=== PATIENT | female | born 1975 | race Caucasian/White ===

== ENCOUNTER 2023-10-15 22:46 | Inpatient (IN) | payer BC, SELFPAY ==
[2023-10-15 18:53] VITALS: BP 132/84
--- NOTE | 2023-10-15 19:21 | ED.GENMED ---
History of Present Illness
General
Chief Complaint: Hyper/Hypo Thermia Problem
Source: patient
Time Seen by Provider: 10/15/23 19:07
History of Present Illness
History of Present Illness:
48-year-old female states that she was playing pickle ball earlier today and 'overdid it'. Describes feeling overheated with episodes of 'hot and cold'. She started to feel like she might pass out described as nausea' tunnel vision'. She asked
her to come pick her up while she applied cold packs. She got home at around 1:30 PM and continued to try to alleviate her symptoms with drinking of fluids, sugar, banana, etc. She describes recurrent episodes of near syncope and shivering
shaking. She measured her temperature and it was abnormally low. Because she was feeling so unwell, she did not get up when she had a the need to defecate and urinate, and as result was incontinent although she denies numbness tingling or lack of
sensation. She denies abdominal pain, chest pain, headache, dyspnea. Patient has a history of vasovagal events in the past and this feels similar. Patient reports a 'migraine' which is typical for her, not sudden onset, not worst of life
associated with mild nausea. No change in vision, no change in swallowing
Past History
Past History
ED Past Medical History: Other (Vasovagal events)
ED Past Surgical History: Gynecological
Social History
Tobacco: Non-smoker
Alcohol: None
Personal:
Living: with family
Phy Exam
Physical Exam
Physical Exam:
GENERAL: Awake but tired appearing, in no apparent distress
EYE: pupils equal and reactive, EOMI, no photophobia, no nystagmus
NECK: Supple, no significant adenopathy.
ENT: o/p clr, mmm.
CARDIAC: Regular rate and rhythm .
LUNGS: Clear breath sounds bilaterally, no acute respiratory distress, no wheezes/rales/rhonchi
ABDOMEN: Soft, without focal tenderness, no r/g, no cvat
NEUROLOGICAL: Alert and oriented, no focal neuro deficits, cranial nerves II through XII intact, sensory intact to light touch, motor 5 out of 5, [id number] normal
SKIN: Warm and dry, skin intact.
MUSCULOSKELETAL: No edema, well perfused.
PSYCH: Normal and appropriate interaction.
Course
Orders/Labs/Results
Orders:
Orders
10/15/23 19:18
Cardiac Monitoring- Treatment ONCE
0.9% Sodium Chloride 1000 ml [Nss] 1,000 ml IV BOLUS
10/15/23 19:19
Electrocardiogram (*1) Urgent
Reason for Study: Other
Other Reason for Exam: sepsis
EKG- Treatment ONCE
10/15/23 19:57
CT Head W/o Iv Contrast Urgent
Comment:
Reason For Exam: dobbins, dizzy
Diphenhydramine [Benadryl] 25 mg IV NOW STA
Metoclopramide [Reglan] 10 mg IV NOW STA
10/15/23 20:38
Complete Blood Count/With Diff Urgent
Comprehensive Metabolic Panel Urgent
Serum Osmolality Urgent
Comment: ADD ON
TSH Reflex To Free T4 Urgent
Comment: ADD ON
10/15/23 22:27
Osmolality, Random Urine Urgent
Date Specimen was Collected: 10/15/23
Time Specimen was Collected: 22:26
Urinalysis Reflex To Culture Urgent
Date Specimen was Collected: 10/15/23
Time Specimen was Collected: 22:26
Urine Sodium Urgent
Date Specimen was Collected: 10/15/23
Time Specimen was Collected: 22:27
10/15/23 22:49
Add On- LAB Urgent
Tests Added?: serum osmo, tsh with free t4
10/15/23 22:56
Admit/Transfer Patient As Directed
Co-Sign Provider:
Level of Care: Inpatient admission
Assign to:: Telemetry
Physician / Group: ranjana,ravinder
Diagnosis: symptomatic hyponatremia 2/2 water intoxication, hypoK
Reason for Telemetry: Arrhythmia
Date to Stop Telemetry: 10/18/23
Time to Stop Telemetry: 11:00
Reason for Hospitalization: symptomatic hyponatremia 2/2 water intoxication, hypoK
Expected length of stay greater than two midnights?: Yes
ELOS- Estimated Length of Stay in days: 4
I certify the patient meets the requirements for IP care: Yes
Code Status As Directed
Resuscitation Status: Full Code
NEPHROLOGY CONSULT Routine
Consulting Provider: Yancy Johansen
Was physician already notified: Yes
Reason for consult: hyponatremia water intoxication
10/15/23 22:58
PRN Pain Medication Management As Directed
May give lesser potent ordered pain med per pt: Yes
preference::
Protocol:: Medication orders for pain may be administered in a
manner that supports deferring to patient preference
when the pt is:
-Requesting an ordered lesser potent pain medication.
Least to most potent pain medications are defined as:
acetaminophen < NSAID < tramadol < opioids (morphine,
oxycodone, hydromorphone).
- Requesting a lesser dose of the same medication IF
ORDERED.
- Requesting a less intrusive route of administration
if both routes are prescribed by the provider (PO <
IV).
10/15/23 23:11
Potassium Chloride [KCl] 40 meq PO NOW STA
10/18/23 11:00
DC Protocol for Telemetry ONCE
Abnormal Lab Results
10/15/23 10/15/23
20:38 22:27
WBC 12.9 H 10^3/uL
(4.8-10.8)
RBC 3.95 L 10^6/uL
(4.20-5.40)
Hgb 11.7 L g/dL
(12.0-16.0)
Hct 31.7 L %
(37.0-47.0)
MCV 80.3 L fL
(81.0-99.0)
Absolute Neuts (auto) 10.8 H 10^3/uL
(1.4-6.5)
Neutrophils % 83.4 H %
(42.2-75.2)
Lymphocytes % 11.7 L %
(20.5-51.1)
Sodium 123 L mmol/L
(135-145)
Potassium 3.4 L mmol/L
(3.5-5.1)
Chloride 94 L mmol/L
(98-107)
Carbon Dioxide 19 L mmol/L
(22-30)
Creatinine 0.5 L mg/dL
(0.6-1.0)
Glucose 161 H mg/dl
(70-99)
Total Bilirubin 1.5 H mg/dl
(0.2-1.3)
AST 39 H U/L
(14-36)
Urine Osmolality 65 L mOsm/kg
(300-900)
10/15/23 20:38
10/15/23 20:38
Vital Signs
Initial and Last Documented VS:
Initial Vital Signs
Temp Pulse Resp BP Pulse Ox
98.0 F 99 20 132/84 99
10/15/23 18:53 10/15/23 18:53 10/15/23 18:53 10/15/23 18:53 10/15/23 18:53
Last Documented Vital Signs
Temp Pulse Resp BP Pulse Ox
98.5 F 96 20 120/80 97
10/15/23 19:55 10/15/23 22:30 10/15/23 18:53 10/15/23 22:30 10/15/23 22:30
*Critical Care Note
Total Time (30-74mins, 75-104mins- exclusive of procedures): Not Applicable
Update Note
Update Note:
Patient presents to the Emergency Department with ____hypothermia, generalized weakness, dizziness
Number and Complexity of Problems Addressed at the Encounter
� Chronic conditions affecting care:
� Acute Exacerbation and/or Progression of Chronic Illness:
� Differential Diagnosis includes: But not limited to heat exhaustion, dehydration, electrolyte abnormality, etc.
Amount and/or Complexity of Data to be Reviewed and Analyzed
� I performed an independent evaluation of and my interpretation is:
EKG:reada by me, nsr, tachycardic, no acute ischemia
CT:[facility] read, ct head nad
Xrays:
Laboratory Studies: Hyponatremia noted, mild hypokalemia
Other:
� Review of other/old records reveals:
� Clinical information was obtained by an independent historian:fannie who is at bedside
� Prescriptions/Medications Considered but not given:
� Further testing considered but not performed:
Risk of Complications and/or Morbidity or Mortality of Patient Management
� Social determinants of health affecting care:
� Discussion with other providers (PCP, Hospitalists, Consultants, etc):
� Escalation of care including admission/observation vs risk of discharge considered:suspect dilutional hypoNa, she reports 'ALOT' of water intake. Case d/w nephro, Dr [place], she advises to not start 3%, just check Na in 4 hrs,
agrees with urine stuides. Case d/w Dr Franklin for admission.
ED Attending Note
-
Portions of this chart may have been created with voice recognition software.� Occasional wrong word or��sound alike� substitutions may have occurred due to the inherent limitations of voice recognition software.
Discharge Plan
Departure
Patient Disposition: Admit
Date of Disposition: 10/15/23
Time of Disposition: 22:14
Admit to: Telemetry
Presentation/result/management discussed w/ accepting MD/DO: Hospitalist
Condition: Fair
Discharge Problem:
Acute hyponatremia
Referrals:
NONE,* [Active] -
Interventions
Interventions:
*Risk Screen - Suicide Last Done: 10/15/23 20:54
*General Assessment Last Done: 10/15/23 20:54
*Neglect/Abuse Screening Last Done: 10/15/23 20:54
*ED COVID-19 Vaccine History Last Done: 10/15/23 20:54
ED- Neurological Assessment Last Done: 10/15/23 20:54
Discharge Date and Time
Print Language: CITIZEN OF [place]
--- NOTE | 2023-10-15 19:49 | EDRN ---
Patient came from triage full of stool. Patient then started to urinate when she came back to room 34. Patient states that over the past couple of hours her temperature has been fluctuating, and has been low. Rectally patient is 98.5 Patient
cleaned, placed in a gown and diaper. Blankets provided. Patient stated that she was okay with throwing her clothes away since they were all soiled.
[2023-10-15] MEDS: BENADRYL 25 MG IV (20:36)
[2023-10-15] MEDS: NSS 1000 IV (20:36)
[2023-10-15] MEDS: REGLAN 10 MG IV (20:37)
[2023-10-15 20:39] VITALS: BP 142/70
[2023-10-15 20:47] LABS: % Basophils 0.2 % (0-2); % Immature Granulocytes 0.2 % (0-0.5); % Lymphocytes 11.7 % (20.5-51.1); % Monocytes 4.5 % (1.7-9.3); % Neutrophils 83.4 % (42.2-75.2); Absolute Lymphocytes 1.5 10^3/uL (1.2-3.4); Absolute Monocytes 0.6 10^3/uL (0.1-0.6); Absolute Neutrophils 10.8 10^3/uL (1.4-6.5); Hematocrit 31.7 % (37.0-47.0); Hemoglobin 11.7 g/dL (12.0-16.0); Mean Corp Hgb Conc. 36.9 g/dL (33.0-37.0); Mean Corpuscular Hgb 29.6 pg (27.0-31.0); Mean Corpuscular Volume 80.3 fL (81.0-99.0); Mean Platelet Volume 9.1 fL (7.4-10.4); Nucleated Red Blood Cells % 0 %; Platelet Count 336 10^3/uL (130-400); Red Blood Cell Count 3.95 10^6/uL (4.20-5.40); Red Cell Dist. Width 11.7 % (11.5-14.5); White Blood Cell Count 12.9 10^3/uL (4.8-10.8)
[2023-10-15 21:01] LABS: ALT (SGPT) 21 U/L (0-35); AST (SGOT) 39 U/L (14-36); Alkaline Phosphatase 80 U/L (38-126); Blood Urea Nitrogen 8 mg/dl (7-17); Calcium 8.8 mg/dl (8.4-10.2); Carbon Dioxide 19 mmol/L (22-30); Chloride 94 mmol/L (98-107); Glucose 161 mg/dl (70-99); Potassium 3.4 mmol/L (3.5-5.1); Sodium 123 mmol/L (135-145); Total Bilirubin 1.5 mg/dl (0.2-1.3); Total Protein 6.3 g/dl (6.3-8.2); eGFR > 60.00
--- NOTE | 2023-10-15 22:20 | HPS.HSE ---
Addendum entered and electronically signed by Isaac Franklin DO 10/15/23 23:19:
Patient seen and examined independently. Agree with findings and plan as set forth by EVELYN Reina.
Patient is a 48y F with PMH significant for vasovagal syndrome / recurrent syncope who presents to ED complaining of chills, nausea, lightheadedness, etc. Patient states that she played pickleball this AM for about 4 hours. She drank about 1/2
gallon of water during that time. When she returned home, she felt very warm and started to feel lightheaded. She drank additional water at home totalling about 190 ounces over 9 hours.
Patient continued to complain of headache, chills / shaking and nausea.
She denies any actual syncope.
Patient presented to the ED where she was noted to have Na = 123.
Ass:
Hyponatremia
Vasovagal Syndrome
Mild Hypokalemia
Plan:
Admit for further evaluation and treatment.
Very likely hyponatremia secondary to excessive water intake.
Fluid restriction overnight.
Follow Na levels for improvement.
Nephrology consulted.
Follow for any fever, new / focal symptoms, etc.
Original Note:
Family Physician
-
Family Physician: Marylou Morales
Chief Complaint
-
Dizziness, trembling, nausea, headache
History of Present Illness
48-year-old female reports was playing pickle ball earlier today with episodes of feeling hot and cold with nausea and tunnel vision. She reports starting pickleball at 8 AM for which she played 4 hours. Over the 4 hours she drank a half a gallon
of water then additional 1/4 gallon. She started feeling hot with tunnel vision so she while in her car she had 4 salt packets and some candy. She called her who drove her home where she began to drink additional 32 ounces of water along
with 8 ounces of coffee totaling 184 ounces of liquids in approximately 9 hours. She reports headache with some nausea has some mild shaking. She reports this did not help her symptoms and she had recurrent shivering, dizziness with a low
temperature and urged to defecate and urinate. She also complains of a headache with mild nausea. Has past medical history of vasovagal events that are similar to this.
PMH vasovagal events
Medical History
Past Medical History
Past Medical History: Reports Other
Additional Past Medical History:
Vasovagal syndrome
Past Surgical History: Reports Other
Additional Past Surgical History:
D&C
Social History
Tobacco: Non-smoker
Alcohol: Occasional
Drug: None
Personal:
Living: With Family ()
Family History
Family History: Other (Mother alive history of vasovagal syncope, pacemaker,)
Allergies / Home Medications
Allergies reflects when Allergies were last updated in [facility].
Home Medications with original date entered in [facility]
Allergy/Medication List:
Allergies
Allergy/AdvReac Type Severity Reaction Status Date / Time
No Known Allergies Allergy Unverified 10/15/23 18:57
Review of Systems
-
History Source: Patient and Family (Has been)
A 12 point ROS was completed and negative except as noted: Yes
Constitutional: Denies Fever or Chills
EENT: Denies Sore Throat or Runny Nose
Respiratory: Denies Cough or Trouble Breathing
Cardiac: Denies Chest Pain, Palpitations or Syncope
Abdomen/GI: Reports Nausea; Denies Abdominal Pain, Vomiting, Diarrhea or Constipated
: Denies Dysuria, Frequency, Flank Pain, Incontinence or Difficulty Voiding
Musculoskeletal: Denies Joint Pain or Edema
Skin: Denies Itching or Rash
Neurological: Reports Dizzy, Headache and Other (Trembling); Denies Weakness
Endocrine: Reports Polydipsia (Today)
Hematologic/Lymphatic: Reports No Symptoms
Psych: Reports Anxiety
Physical Exam
Vital Signs
Vital Signs
Temp Pulse Resp BP Pulse Ox
98.5 F 99 20 142/70 99
10/15/23 19:55 10/15/23 18:53 10/15/23 18:53 10/15/23 20:39 10/15/23 18:53
Physical Exam
General: Conversant and Other (Slight confusion of days event and water intake); No Pain or Fever
HEENT: NormoCephalic, Anicteric, Moist mucous membranes, PERRLA, [place] Conjunctivae and No Ptosis
Respiratory: Clear; No Wheezes, Rales or Rhonchi
Cardiac: S1/S2 and Regular Rhythm; No Murmur, Rub, Gallop or Peripheral Edema
Breast: Deferred by me
GI: Soft, Non Tender, Non Distended, Normal Bowel Sounds and No Hepatosplenomegaly
Rectal: Deferred by Provider
Genito-urinary: Other (Large amount of clear urine in bedpan)
Musculoskeletal: No Clubbing, No Cyanosis and No Edema
Skin: Warm and Dry; No Rash
Neuro: AO x 3 (With slight confusion of water intake amount today), Nonfocal/grossly intact, Cranial Nerves Intact, No Sensory Deficits and Other (Trembling); No Slurred Speech or Facial Droop
Laboratory Results
-
10/15/23 20:38
10/15/23 20:38
Laboratory Results
Total Bilirubin 1.5 mg/dl (0.2-1.3) H 10/15/23 20:38
AST 39 U/L (14-36) H 10/15/23 20:38
ALT 21 U/L (0-35) 10/15/23 20:38
Alkaline Phosphatase 80 U/L (38-126) 10/15/23 20:38
Impression/Plan
-
Impression/plan:
Admit to telemetry
#Symptomatic hyponatremia hypervolemic concern for water intoxication
Nausea, dizziness, headache, tremors
NA 123
-Patient was given 1 L NSS in ER
Patient drank 184 ounces over approximately 9 hours after playing pickle ball-patient counseled on water intake
Fluid restrict 40 oz
-Repeat BMP 0030 and in am
-Consult Nephro
-Check urine NA, urine Osmo, serum Osmo, TSH with free T4 reflex
- Check Ct head
#Hypokalemia
K3.4
KCl 40 mEq
EKG: Sinus tach 101 bpm otherwise normal, QTc 466 MS
#Leukocytosis likely reactive
WBC 12.9 with left shift, afebrile, HR 99
Check UA FELT CHECKER
if develops temp 100.4F> would obtain blood culture
DVT prophylaxis
Subcu Lovenox
Full code
[2023-10-15 22:30] VITALS: BP 120/80
[2023-10-15 22:49] LABS: Urine Albumin Negative (Neg - Trace); Urine Bilirubin Negative (Negative); Urine Character Clear (Clear); Urine Color Straw; Urine Glucose Negative (Negative); Urine Ketone Negative (Negative); Urine Leukocyte Negative (Negative); Urine Nitrite Negative (Negative); Urine Occult Blood Negative (Negative); Urine Urobilinogen Negative (Neg - 1+)
[2023-10-15 22:51] LABS: Osmolality Urine 65 mOsm/kg (300-900)
[2023-10-15 23:25] LABS: Urine Sodium 20 mmol/L (30-90)
[2023-10-15 23:42] LABS: Osmolality Serum 254 mOsm/kg (275-300)
[2023-10-16] VITALS (9 sets, daily range): BP systolic 81–113; BP diastolic 48–77; PULSE 90; BMI 25.3
[2023-10-16] MEDS: KCL 40 MEQ PO (00:09)
[2023-10-16 00:23] LABS: TSH Reflex To Free T4 0.39 uIU/ml (0.47-4.68)
[2023-10-16 00:51] LABS: Free T4 1.25 ng/dl (0.78-2.19)
--- NOTE | 2023-10-16 02:04 | PTCARENOTE ---
Received patient from ER. stable vitals. No c/o pain/ No dizziness at this time. SR in 80s on tele. POC reviewed with patient.
[2023-10-16 07:26] LABS: % Basophils 0.3 % (0-2); % Eosinophils 0.9 % (0-6); % Immature Granulocytes 0.1 % (0-0.5); % Lymphocytes 30.9 % (20.5-51.1); % Monocytes 14.3 % (1.7-9.3); % Neutrophils 53.5 % (42.2-75.2); Absolute Eosinophils 0.1 10^3/uL (0-0.7); Absolute Lymphocytes 2.1 10^3/uL (1.2-3.4); Absolute Neutrophils 3.7 10^3/uL (1.4-6.5); Hematocrit 36.4 % (37.0-47.0); Hemoglobin 12.9 g/dL (12.0-16.0); Mean Corp Hgb Conc. 35.4 g/dL (33.0-37.0); Mean Corpuscular Hgb 30.2 pg (27.0-31.0); Mean Corpuscular Volume 85.2 fL (81.0-99.0); Mean Platelet Volume 9.4 fL (7.4-10.4); Nucleated Red Blood Cells % 0 %; Platelet Count 332 10^3/uL (130-400); Red Blood Cell Count 4.27 10^6/uL (4.20-5.40); Red Cell Dist. Width 11.9 % (11.5-14.5); White Blood Cell Count 6.9 10^3/uL (4.8-10.8)
[2023-10-16 08:12] LABS: Blood Urea Nitrogen 9 mg/dl (7-17); Calcium 9.5 mg/dl (8.4-10.2); Carbon Dioxide 21 mmol/L (22-30); Chloride 111 mmol/L (98-107); Estimated Creatinine Clearance 87 ml/min; Glucose 91 mg/dl (70-99); Potassium 4.4 mmol/L (3.5-5.1); Sodium 137 mmol/L (135-145); eGFR > 60.00
[2023-10-16] MEDS: TYLENOL 650 MG PO (09:20)
--- NOTE | 2023-10-16 12:11 | W.PN.HOSP.TC ---
Addendum entered and electronically signed by Kirk Paul MD 10/16/23 16:26:
Discussed with Nephrology.
Will keep overnight with labs and cortisol levels in am
Original Note:
Today's Communication/Plan
-
Discharge today with outpatient follow-up and labs
Assessment / Plan
Assessment / Plan
48-year-old female reports was playing pickle ball and she drank a half a gallon of water then additional 1/4 gallon.
CVS: S1-S2 normal
Chest: CTA B/L
Abdomen: Soft, NT / Bowel sounds present
Extremities: No edema, normal pulses
APPLICATION DEVELOPMENT LIAISON: Non focal exam
#Symptomatic hyponatremia -concern for water intoxication
(Nausea, dizziness, headache, tremors)
NA 123 on admission
Patient was given 1 L NSS in ER, now at 137
It is very acute hyponatremia therefore rapidly corrected after only the normal saline in the ER and fluid restriction
Patient is not sure how much water she drank as she reports some water on her body also to cool her down. She stated that her temperature then went down to 94.
Nephro consulted repeat BMP as outpatient after discharge
#H/O Syncopes multiple as OP-states that this runs in her family's.
Context to syncope -indicates vasovagal after prolonged standing, pain etc.
She has a family history of heart disease therefore discussed with the patient to follow-up with a carriage dogger as outpatient and also to get an outpatient echo.
She did not have a syncopal event yesterday
#Hypokalemia-Resolved
#Abnormal TSH with normal T4-Repeat as OP
#Leukocytosis likely reactive- Resolved.
#DVT prophylaxis-Subcu Lovenox
#Full code
Discussed with nursing
Anticipated Discharge: Today
Subjective/Interval History
-
Date of Service: October 16, 2023
Objective Data
-
Labs:
Laboratory Results
10/16/23
06:48
WBC 6.9
Hgb 12.9
Hct 36.4 L
Plt Count 332
Sodium 137 D
Potassium 4.4 D
Chloride 111 H
Carbon Dioxide 21 L
BUN 9
Creatinine 0.7
Glucose 91
Calcium 9.5
Vital Signs:
Vital Signs
Temp Pulse Resp BP Pulse Ox
98.1 F 83 16 81/48 97
10/16/23 11:05 10/16/23 11:05 10/16/23 11:05 10/16/23 11:05 10/16/23 11:05
--- NOTE | 2023-10-16 12:42 | CM ---
Patient seen bedside, initial assessment completed. Patient resides with her in a bi level home, 6 or 7 steps to enter. Patient is independent, denies DME, VN, or SNF. Patient PCP through [facility]. [facility]
[place], confirms prescription coverage. Patient inquiring if she will be discharging home today. CM will continue to follow for all discharge planning needs.
Plan; home no needs likely.
--- NOTE | 2023-10-16 13:17 | PTOTSP ---
Patient demonstrates safe and independent mobility, no skilled physical therapy needs at this time.
--- NOTE | 2023-10-16 14:43 | W.CON.NEPH ---
Consultation
-
Date/Time Consultation Requested: 10/15/23 2256
Date/Time Consultation Performed: 10/16/23 1500
Requesting Provider: Isaac Horton
Performing Provider: Yancy Huffman
Reason for Consultation: Hyponatremia
Medical History
-
Chief Complaint: Dizziness, nausea, RANGEL
History of Present Illness:
48y F with PMH significant for vasovagal syndrome(pain) / recurrent syncope who presents to ED complaining of chills, nausea, lightheadedness, etc. Patient states that she played pickleball on 10/14 AM for about 4 hours. She drank about 1/2
gallon of water during that time. When she returned home, she felt very warm and started to feel lightheaded. She drank additional water at home totalling about 190 ounces over 9 hours. Patient continued to complain of headache, chills / shaking
and nausea. She denies any actual syncope. In ER sodium noted at 123. She received 1lit NS in ER, U osmo noted at 65. This morning sodium at 137. Now she feels well at her baseline, reports no prior hyponatremia. No n/v, RANGEL or dizziness. Walked in
halways with out issues. Her BP today were 80-90s. lower than admit. She does admit chronic low BPs runs in her family.
Past Medical History
Vasovagal syndrome
Past Surgical History: Other (D&C)
Social History
Tobacco: Non-Smoker
Alcohol: Occasional
Drug: None
Personal:
Living: With Family
Family History
Mother alive history of vasovagal syncope, pacemaker
Allergies / Home Medications
Allergy/AdvReac Type Severity Reaction Status Date / Time
No Known Allergies Allergy Unverified 10/15/23 18:57
Review of Systems
-
All complete 12 point ROS have been inquired and found negative other than stated in HPI
Physical Exam
Vital Signs
Vital Signs
Temp Pulse Resp BP Pulse Ox
98.1 F 83 16 81/48 97
10/16/23 11:05 10/16/23 11:05 10/16/23 11:05 10/16/23 11:05 10/16/23 11:05
Lab Results
WBC 6.9 10^3/uL (4.8-10.8) 10/16/23 06:48
RBC 4.27 10^6/uL (4.20-5.40) 10/16/23 06:48
Hgb 12.9 g/dL (12.0-16.0) 10/16/23 06:48
Hct 36.4 % (37.0-47.0) L 10/16/23 06:48
Plt Count 332 10^3/uL (130-400) 10/16/23 06:48
Sodium 137 mmol/L (135-145) D 10/16/23 06:48
Potassium 4.4 mmol/L (3.5-5.1) D 10/16/23 06:48
Chloride 111 mmol/L (98-107) H 10/16/23 06:48
Carbon Dioxide 21 mmol/L (22-30) L 10/16/23 06:48
BUN 9 mg/dl (7-17) 10/16/23 06:48
Creatinine 0.7 mg/dL (0.6-1.0) 10/16/23 06:48
eGFR > 60.00 10/16/23 06:48
Glucose 91 mg/dl (70-99) 10/16/23 06:48
Calcium 9.5 mg/dl (8.4-10.2) 10/16/23 06:48
Albumin 4.0 g/dl (3.5-5.0) 10/15/23 20:38
Abnormal Lab Results
10/15/23 10/15/23 10/16/23
20:38 22:27 06:48
WBC 12.9 H
RBC 3.95 L
Hgb 11.7 L
Hct 31.7 L 36.4 L
MCV 80.3 L
Absolute Neuts (auto) 10.8 H
Absolute Monos (auto) 1.0 H
Neutrophils % 83.4 H
Lymphocytes % 11.7 L
Monocytes % 14.3 H
Sodium 123 L
Potassium 3.4 L
Chloride 94 L 111 H
Carbon Dioxide 19 L 21 L
Creatinine 0.5 L
Glucose 161 H
Serum Osmolality 254 L
Total Bilirubin 1.5 H
AST 39 H
TSH (Reflex) 0.39 L
Urine Osmolality 65 L
Urine Sodium [address]:
IMPRESSION:
No acute intracranial abnormality noted.
Physical Exam
General: Awake, Alert, Oriented, AOx3, No Distress and Nontoxic
HEENT: EOMI, Anicteric, Conjunctivae Clear, Neck Supple and No JVD
Respiratory: Clear, Normal Excursion and Nonlabored Respirations
Cardiac: S1/S2, Regular Rate/Rhythm and Murmur
Breast: Deferred by me
Abdomen: Soft, Nontender and Nondistended
Musculoskeletal: No Cyanosis and No Edema
Skin: No Rash
Neuro: Nonfocal/Grossly Intact
Psych: Mood/afflect pleasant, Insight/judgement good and Appropriate
Data Reviewed
-
Labs: Labs Reviewed by me, Discussed with Physician and Discussed with Patient
Assessment/Plan
-
IMp:
Symptomatic hyponatremia -concern for water intoxication
H/O vasovagal Syncopes multiple as OP-states that this runs in her family's.
Hypokalemia
Hypotension
Abnormal TSH with normal T4
Leukocytosis likely reactive
Plan:
A/w RANGEL, nausea, tremors
found hyponatremia 123 with U osmo 65 -suggest acute water intoxication
reviewed mechanism, educated to be cautious in future
sodium self corrected to 137
given acute case correction is liberal
BPs are soft, ?chronic -check cortisol level
monitor Bps
labs in am
f/u with PCP
d/w primary
[2023-10-16 16:27] LABS: Cortisol, Random 11.6 ug/dl
[2023-10-17 03:01] VITALS: BP 103/59
[2023-10-17 06:00] VITALS: BMI 25.1
[2023-10-17 07:20] VITALS: BP 107/75
[2023-10-17 08:55] LABS: Blood Urea Nitrogen 14 mg/dl (7-17); Carbon Dioxide 22 mmol/L (22-30); Chloride 108 mmol/L (98-107); Estimated Creatinine Clearance 87 ml/min; Glucose 91 mg/dl (70-99); Potassium 4.6 mmol/L (3.5-5.1); Sodium 137 mmol/L (135-145); eGFR > 60.00
--- NOTE | 2023-10-17 10:37 | W.PN.NEPH.PH ---
Today's Communication / Plan
-
Stable for discharge
Need to follow-up with PCP and repeat BMP next
Assessment/Plan
-
IMp:
Symptomatic hyponatremia -concern for water intoxication
H/O vasovagal Syncopes multiple as OP-states that this runs in her family's.
Hypokalemia
Hypotension
Abnormal TSH with normal T4
Leukocytosis likely reactive
Plan:
A/w RANGEL, nausea, tremors
found hyponatremia 123 with U osmo 65 -suggest acute water intoxication
reviewed mechanism, educated to be cautious in future
sodium self corrected to 137
given acute case correction is liberal
BPs are soft, ?chronic -check cortisol level
monitor Bps
labs in am
f/u with PCP
Stable for discharge
-
-
Date of Service: October 17, 2023
CC / HPI / ROS
-
Chief Complaint:
Hyponatremia
History of Present Illness:
Serum sodium self corrected to 137
Hemodynamically labile
Review of Systems:
No chest pain or shortness of breath subjectively nonoliguric
Labs
-
Labs:
WBC 6.9 10^3/uL (4.8-10.8) 10/16/23 06:48
RBC 4.27 10^6/uL (4.20-5.40) 10/16/23 06:48
Hgb 12.9 g/dL (12.0-16.0) 10/16/23 06:48
Hct 36.4 % (37.0-47.0) L 10/16/23 06:48
Plt Count 332 10^3/uL (130-400) 10/16/23 06:48
Sodium 137 mmol/L (135-145) 10/17/23 08:13
Potassium 4.6 mmol/L (3.5-5.1) 10/17/23 08:13
Chloride 108 mmol/L (98-107) H 10/17/23 08:13
Carbon Dioxide 22 mmol/L (22-30) 10/17/23 08:13
BUN 14 mg/dl (7-17) 10/17/23 08:13
Creatinine 0.7 mg/dL (0.6-1.0) 10/17/23 08:13
eGFR > 60.00 10/17/23 08:13
Glucose 91 mg/dl (70-99) 10/17/23 08:13
Calcium 10.0 mg/dl (8.4-10.2) 10/17/23 08:13
Albumin 4.0 g/dl (3.5-5.0) 10/15/23 20:38
Physical Exam
-
Vital Signs:
Vital Signs
Temp Pulse Resp BP Pulse Ox
98.2 F 70 16 107/75 100
10/17/23 07:20 10/17/23 07:20 10/17/23 07:20 10/17/23 07:20 10/17/23 08:00
Cardiovascular:: Regular rate and rhythm
Respiratory:: Bilateral: CTA
Lung Excursion:: Normal
Abdomen:: Nontender and Soft
Bowel Sounds:: Normal
Extremity Edema:: None: Bilateral:
[2023-10-17 11:00] VITALS: BP 101/71
[2023-10-17 12:42] VITALS: BP 132/61
--- NOTE | 2023-10-17 14:38 | W.PN.HOSP.TC ---
Today's Communication/Plan
-
Discharge
OP follow up discussed
Assessment / Plan
Assessment / Plan
48-year-old female reports was playing pickle ball and she drank a half a gallon of water then additional 1/4 gallon.
CVS: S1-S2 normal
Chest: CTA B/L
Abdomen: Soft, NT / Bowel sounds present
Extremities: No edema, normal pulses
MERCURY RECOVERER: Non focal exam
#Symptomatic hyponatremia -concern for water intoxication
(Nausea, dizziness, headache, tremors)
NA 123 on admission
Patient was given 1 L NSS in ER
It is very acute hyponatremia therefore rapidly corrected after only the normal saline in the ER and fluid restriction
Patient is not sure how much water she drank as she reports some water on her body also to cool her down. She stated that her temperature then went down to 94.
Nephro eval appreciated
#H/O Syncopes multiple as OP-states that this runs in her family's.
Context to syncope -indicates vasovagal after prolonged standing, pain etc.
She has a family history of heart disease therefore discussed with the patient to follow-up with a fulfillment associate as outpatient and also to get an outpatient echo.
She did not have a syncopal event yesterday
#Hypokalemia-Resolved
#Abnormal TSH with normal T4-Repeat as OP 6 weeks
#Leukocytosis likely reactive- Resolved.
#DVT prophylaxis-Subcu Lovenox
#Full code
Discussed with nursing
D/W Renal
Anticipated Discharge: Today
Subjective/Interval History
-
Date of Service: October 17, 2023
Objective Data
-
Labs:
Laboratory Results
10/17/23
08:13
Sodium 137
Potassium 4.6
Chloride 108 H
Carbon Dioxide 22
BUN 14
Creatinine 0.7
Glucose 91
Calcium 10.0
Vital Signs:
Vital Signs
Temp Pulse Resp BP Pulse Ox
98.2 F 66 16 132/61 100
10/17/23 12:42 10/17/23 12:42 10/17/23 12:42 10/17/23 12:42 10/17/23 12:42
I&O
10/16/23 10/17/23 10/18/23
06:59 06:59 06:59
Intake Total 1260 / 1260
Balance 1260 / 1260
--- NOTE | 2023-10-17 14:39 | W.DS.TRANS ---
Addendum entered and electronically signed by Kirk Paul MD 10/17/23 17:05:
Dictation- [id number]
Original Note:
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
-
Discharge Instructions:
Discharge Diagnosis/Procedures Hyponatremia
Diet As tolerated
Activity As tolerated
Driving Restrictions As prior to admission
Blood Work CMP 3-4 days
Others Tests thyroid function tests 6 weeks
Instructions:
Stand-Alone Forms:
Changes to Home Medications: No
Discharge Medications:
Home Medication Changes
Pending Results: No
--- NOTE | 2023-10-17 14:40 | CM ---
Patient seen bedside, reports no needs to CM at this time. Patient reports she is hopeful to discharge today. CM will continue to follow for all discharge planning needs.
Plan; home no needs.
[2023-10-17 14:50] VITALS: BP 105/67
== END 2023-10-17 15:10 | disposition home or self-care (01) | DRG 641 ==
LOC: 4 WEST ACU 22:46
PROVIDERS: Clinical Nurse Specialist Family Health; ADMITTING PHYSICIAN Hospitalist; ATTENDING PHYSICIAN Hospitalist; CONSULT PHYSICIAN Internal Medicine; EMERGENCY PHYSICIAN Emergency Medicine; FAMILY PHYSICIAN Family Medicine
DX: E87.1 Hypo-osmolality and hyponatremia (principal); R11.0 Nausea; R55 Syncope and collapse; G43.909 Migraine, unspecified, not intractable, without status migrainosus; R15.9 Full incontinence of feces; R32 Unspecified urinary incontinence; E87.6 Hypokalemia; E87.79 Other fluid overload; D72.829 Elevated white blood cell count, unspecified; I95.9 Hypotension, unspecified; R94.6 Abnormal results of thyroid function studies; R25.1 Tremor, unspecified
CPT/HCPCS: 70450; 80048; 80053; 81003; 82533; 83930; 83935; 84300; 84439; 84443; 85025; 93005; 96360; 97161; 97165; 99285